=== PATIENT | female | born 1970 | race Caucasian/White ===

== ENCOUNTER 2019-04-15 08:52 | Observation (INO) | payer SELFPAY ==
[2019-04-15 08:53] VITALS: BP 122/37; PULSE 73; RESP 16; TEMP 36.6; O2SAT 97; BMI 44.4
--- NOTE | 2019-04-15 09:01 | ED.DCSUM_ITS ---
History of Present Illness Chief Complaint: Abd Pain Informant: Patient Onset: Today Context: Sudden Onset Timing: Continuous Quality: Pain Location: Right lower quadrant Current Severity: Moderate Maximum Severity: Severe Worsened by: Walking, supine position Relieved by: Nothing Associated Symptoms: Nausea Narrative: Patient is a 48-year-old woman status post hysterectomy with unilateral salpingo-oophorectomy as well as ovarian torsion. She is uncertain if the torsion occurred on the right side. She states her right ovary is still present. She is status post appendectomy. There is a history of ureterolithiasis x1. Patient presents with abrupt onset of right lower quadrant bowel pain. She states walking makes it worse as well as stretching her legs out. She denies dysuria, frequency, urgency or hematuria. She does report nausea without vomiting. She not eat breakfast. She states she does not always eat breakfast. She states she has no appetite. The pain does not radiate through to her back. She denies food intolerance. She denies history of cholelithiasis. He appears tanned. She states she does go to tanning bed. Prior similar symptoms: No Recent Illness/Hospitalization: No - Past Medical History (1) Ovarian torsion Status: Acute (2) Depression Status: Acute Past Medical History - Allergies and Home Meds Allergies/Adverse Reactions: Allergies doxycycline Adverse Reaction (Verified 04/15/19 08:54) Nausea ketorolac tromethamine [From Toradol] Adverse Reaction (Verified 04/15/19 08:54) Nausea Primary Care Physician: Leonardo Lopez MD [Primary Care Provider] - Prior records reviewed: Yes Surgical History: appendectomy, hysterectomy Lives: Spouse/ Significant Other Smoking Status: Never smoker Alcohol: Rare Drugs: None Review of Systems General: Denies: Chills, Fever, Malaise, Sweats, Weight loss Eyes: Denies: Visual changes - bilaterally, Blurred Vision - bilaterally ENT: Denies: Rhinorrhea, Sore throat Cardiovascular: Denies: Chest pain, Palpitations Respiratory: Denies: Dyspnea, Cough, Dyspnea on exertion Gastrointestinal: Reports: Abdominal pain, Nausea. Denies: Vomiting, Diarrhea, Constipation, Melena, Hematochezia, -, - Genitourinary: Denies: Dysuria, Hematuria, Frequency Musculoskeletal: Denies: Myalgias, Arthralgias, Neck pain, Back pain, Swelling, Extremity Pain, -, - Skin: Denies: Rash, Wounds Neurological: Denies: Headache, Weakness, Numbness Psych: Reports: Depression Hematologic: Denies: Easy bruising, Easy bleeding Physical Exam Vital Signs/Narrative: Vital Signs Temp Pulse Resp BP Pulse Ox 04/15/19 08:53 98 F 73 16 122/37 H 97 Inital Vital Signs reviewed: Yes General: Well nourished, Well developed, Obese, Acute Distress Head: Normocephalic, Atraumatic Eyes: Perrl, EOMI. Negative for: Pale conjunctiva, Scleral icterus ENT: Moist mucous membranes, No rhinorrhea, TM's clear Neck: Supple, Nontender, No lymphadenopathy, No JVD Cardiovascular: Regular rate, Regular rhythm, No murmurs, Normal S1, Normal S2 Respiratory: No distress, CTA bilaterally, Chest nontender Abdomen: Soft, Nondistended, Normal bowel sounds, Tender, Guarding, Hypoactive bowel sounds Back: Nontender, Normal Inspection. Negative for: CVA tenderness Extremities: Nontender, No edema. Negative for: Tenderness, Edema Skin: Normal color, No rash, No Trauma. Negative for: Cyanosis, Diaphoresis, Jaundice Neurological: Alert, Oriented x3, Cranial nerves II-XII grossly intact, Normal Strength, Normal Sensation Psychological: Normal affect, Normal Mood Diagnostic/Tx/Re-eval Impressions Abdomen/Pelvis CT 04/15/19 10:05 IMPRESSION: 3.3 mm calculus at the right ureterovesical junction causing right hydronephrosis and right hydroureter. Multiple gallstones. Electronically Signed: Addison Segundo, at 11:21 EST , Service support , 04/15/19 10:05 Abdomen/Pelvis without Cont [CT] Stat Laboratory Results 04/15/19 04/15/19 04/15/19 09:15 09:15 09:15 WBC 8.7 RBC 4.79 Hgb 14.0 Hct 43.1 MCV 90.0 MCH 29.2 MCHC 32.5 RDW Std Deviation 42.2 RDW Coeff of Wilber 12.8 Plt Count 240 MPV 10.3 Immature Gran % (Auto) 0.300 Neut % (Auto) 80.1 H Lymph % (Auto) 13.9 L [place] % (Auto) 3.7 Eos % (Auto) 1.5 Baso % (Auto) 0.5 Absolute Neuts (auto) 7.0 Absolute Lymphs (auto) 1.21 Nucleated RBC % 0 Sodium 142 Potassium 4.0 Chloride 111 H Carbon Dioxide 28.0 Anion Gap 3 L BUN 17 Creatinine 1.07 H Estim Creat Clear Calc 56.60 Est GFR (MDRD) Af Amer 70 Est GFR (MDRD) Non-Af 58 L BUN/Creatinine Ratio 15.9 Glucose 120 H Calcium 9.1 Total Bilirubin 0.30 AST 12 L ALT 27 Alkaline Phosphatase 89 Total Protein 7.5 Albumin 3.8 Globulin 3.7 Albumin/Globulin Ratio 1.0 Lipase 127 Urine Color Yellow Urine Clarity Sl. Cloudy Urine pH 5.0 Ur Specific [place] 1.020 Urine Protein 30 H Urine Glucose (UA) Normal Urine Ketones Negative Urine Occult Blood 250 H Urine Nitrite Negative Urine Bilirubin Negative Urine Urobilinogen Normal Ur Leukocyte Esterase 25 H Urine RBC 25-50 SEEN Urine WBC 0-5 SEEN Ur Squamous Epith Cells 0-5 SEEN Urine Bacteria 0 SEEN Urine Mucus 0 SEEN Urine Yeast 1+ AC is unremarkable. Renal functions unremarkable. Liver enzymes are normal. UA is remarkable for hematuria. There is no evidence infection. CT of the abdomen pelvis without contrast reveals obstructing 3.3 mm right UVJ stone with hydro-nephrosis and hydroureter. There is also evidence of cholelithiasis without evidence of cholecystitis. Patient's pain is not being managed. Urology was paged for admission. - Medical Decision Making Patient presents abrupt onset of right lower quadrant bowel pain. On exam she has diffuse tenderness in right upper quadrant with equivocal Sainz sign. This raises concern for cholelithiasis/cholecystitis. Patient believes her right ovary is still present. With prior history of torsion and a abrupt onset of pain with guarding need to evaluate for torsion if liver enzymes are normal. Chandra s no history of ureterolithiasis UA was obtained. Since patient reports allergy to Toradol she was treated with Zofran and morphine IV push. ED Disposition - Plan for ED Patient: Disposition: Acute Care Hospital [facility] Diagnosis: Hydronephrosis with urinary obstruction due to ureteral calculus Referrals: Leonardo Lopez MD [Primary Care Provider] -
[2019-04-15] MEDS: Ondansetron 4 MG/2 ML Vial IV (09:20)
[2019-04-15] MEDS: 0.9% Normal Saline 1,000 ML 1000 ML IV (09:20)
[2019-04-15] MEDS: Morphine 4 MG/ML Syringe IV ×2 (09:20→10:44)
[2019-04-15 09:26] LABS: Absolute Lymphocyte Count 1.21 X10^3/uL (0.83-4.51); Basophil# 0.04 X10^3/uL; Basophil% 0.5 % (0-1); Eosinophil# 0.13 X10^3/uL; Eosinophils% 1.5 % (0-5); Hematocrit 43.1 % (37-47); Lymphocyte # 1.21 X10^3/ul (4.0); Lymphocyte % 13.9 % (19-41); Mean Corp Hgb Conc 32.5 g/dL (32-36); Mean Corpuscular Hgb 29.2 pg (27.0-32.0); Mean Platelet Vol. 10.3 fl (6.2-12.0); Monocyte# 0.32 X10^3/uL; Monocyte% 3.7 % (0-10); NRBC Flagged by Analyzer 0 % (0-5); Neutrophil # 6.97 X10^3/uL (2.7-7.7); Neutrophil % 80.1 % (47-70); Platelet Count 240 K/mm3 (150-450); RBC Distribution Width CV 12.8 % (11.6-14.6); RBC Distribution Width SD 42.2 fl (35.1-43.9); Red Blood Count 4.79 M/mm3 (4.2-5.4); White Blood Count 8.7 K/mm3 (4.4-11.0)
[2019-04-15 09:28] LABS: Bacteria 0 SEEN /hpf (None Seen); Mucous, Urine 0 SEEN /hpf (<or=2+)
[2019-04-15 09:35] LABS: Color, Urine Yellow (Yellow); Glucose, Dipstick Normal (Normal); Ketone-Dipstick Negative (Negative); Leukocyte Esterase-Dipstick 25 /ul (Negative); Nitrite-Dipstick Negative (Negative); Occult Blood-Urine 250 /ul (Negative); Protein-Dipstick 30 mg/dl (Negative); Urine Bilirubin Dipstick Negative (Negative); Urine Clarity Sl. Cloudy (Clear); Urine Urobilinogen Normal (Normal)
[2019-04-15 09:41] LABS: AST(SGOT) 12 U/L (15-37); Alanine Aminotransfer ALT/SGPT 27 U/L (13-56); Albumin, Serum 3.8 g/dL (3.2-5.0); Alkaline Phosphatase 89 U/L (45-117); Anion Gap 3 (5-15); BUN 17 mg/dL (7-18); BUN/Creat Ratio 15.9 RATIO (10-20); Calcium,Total 9.1 mg/dL (8.5-10.1); Chloride 111 mmol/L (98-107); Creatinine, Serum 1.07 mg/dL (0.55-1.02); EST Glomerular Filtration Rate 58 mL/min (>60); Est Glom Filt Rate - Afr Amer 70 mL/min (>60); Globulin 3.7 g/dL (2.2-4.2); Glucose 120 mg/dL (74-106); Lipase 127 U/L (73-393); Protein, Total 7.5 g/dL (6.4-8.2); Sodium Level 142 mmol/L (136-145)
[2019-04-15 09:43] LABS: Red Blood Cells-Urine 25-50 SEEN /hpf (0-5); Squamous Epithelial Cells - UA 0-5 SEEN /hpf (5-10); White Blood Cells 0-5 SEEN /hpf (0-5); Yeast-Urine 1+ /hpf (None Seen)
--- NOTE | 2019-04-15 10:05 | CT_ITS ---
STUDY: CT ABDOMEN AND PELVIS WITHOUT CONTRAST REASON FOR EXAM: Female, 48 years old. ACUTE RIGHT SIDED PAIN WITH HEMATURIA, NAUSEA. RADIATION DOSAGE (If Supplied By Facility): CTDIvol = ( 23.20 ) mGy, DLP = ( 1333.14 ) mGycm TECHNIQUE: Transaxial images were obtained from the dome of the diaphragm to the symphysis pubis without oral contrast, and without intravenous contrast. Sagittal and coronal images were reconstructed. Individualized dose optimization techniques were used for this CT. COMPARISON: Comparison is made with prior study dated October 21, 2016. FINDINGS: Minimal degree of increased markings at the bases suggestive of atelectasis. The visualized portions of the heart are within normal limits. Normal liver. There are multiple gallstones. Normal spleen. Normal pancreas. Normal bilateral adrenal glands. Moderate degree right-sided hydronephrosis and hydroureter due to a 3.3 mm calculus at the right ureterovesical junction. Mild degree of right perinephric stranding. Normal left kidney. There is a small hiatal hernia. Normal small intestine. Normal colon. The appendix is visualized and appears normal. Normal abdominal aorta. Normal inferior vena cava. Normal retroperitoneum. Normal urinary bladder. There is absence of the uterus consistent with a prior hysterectomy. Normal abdominal wall. Normal osseous structures. CT/Abdomen/Pelvis without Cont IMPRESSION: 3.3 mm calculus at the right ureterovesical junction causing right hydronephrosis and right hydroureter. Multiple gallstones. Electronically Signed: Addison Segundo, at 11:21 EST , Service support ,
--- NOTE | 2019-04-15 10:40 | ED.RN ---
PT REQUESTING ADDITIONAL PAIN MEDICATION, DR. BARAJAS MADE AWARE, ADDITIONAL ORDERS OBTAINED.
[2019-04-15 11:20] VITALS: RESP 18
[2019-04-15] MEDS: morphine 8 MG/ML Syringe 6 MG IV (12:14)
[2019-04-15 13:19] VITALS: BMI 44.1
[2019-04-15 13:27] VITALS: BMI 44.2
[2019-04-15 13:46] VITALS: BP 129/70; PULSE 71; RESP 16; TEMP 36.7; O2SAT 94
[2019-04-15] MEDS: Dext 5%-0.45% NS 1,000 ML 125 ML IV (16:03)
[2019-04-15] MEDS: 0.9% Saline Lock 10 ML Syringe IV (16:10)
[2019-04-15] MEDS: Morphine 4 MG/ML Syringe 3 MG IV (16:10)
[2019-04-15] MEDS: Tamsulosin HCl 0.4 MG Capsule PO (16:43)
[2019-04-15 20:40] VITALS: BP 108/57; PULSE 81; RESP 18; TEMP 37.1; O2SAT 95
[2019-04-15] MEDS: oxyCODONE 5 MG Tablet 10 MG PO (20:49)
[2019-04-15] MEDS: Acetaminophen 325 MG Tablet 650 MG PO (20:50)
[2019-04-15] MEDS: Zolpidem Tartrate 5 MG Tablet PO (21:18)
[2019-04-15] MEDS: Citalopram 40 MG TABLET PO (21:18)
[2019-04-16] MEDS: Dext 5%-0.45% NS 1,000 ML 125 ML IV ×2 (00:10→08:18)
[2019-04-16] MEDS: Morphine 4 MG/ML Syringe 3 MG IV ×2 (00:12→06:52)
[2019-04-16 03:00] VITALS: BP 108/65; PULSE 69; RESP 18; TEMP 36.6; O2SAT 98
--- NOTE | 2019-04-16 08:17 | HP.PCM_ITS ---
Problem List (1) Hydronephrosis with urinary obstruction due to ureteral calculus Status: Acute History of Present Illness Date of Admission: 04/15/19 Chief Complaint: Right flank pain The patient is a 48 year old F who developed excruciating right-sided flank pain yesterday around 5:30 in the morning. It was associated with some nausea but no vomiting. She has had 1 stone in the past, did not need surgery for that stone. Her only other medical history is endometriosis. She has no other urological complaints. She presented to the emergency room secondary to the severity of her pain and was diagnosed with a right distal ureteral calculus with hydronephrosis.] Past Medical History Allergies doxycycline Adverse Reaction (Verified 04/15/19 08:54) Nausea ketorolac tromethamine [From Toradol] Adverse Reaction (Verified 04/15/19 08:54) Nausea Home Medications: Ambulatory Orders Medication Instructions Recorded Citalopram [Celexa] 40 mg PO DAILY 10/21/16 Zolpidem Tartrate [Ambien] 5 mg PO QHS 10/21/16 Surgical History: appendectomy, hysterectomy Lives: Spouse/ Significant Other Smoking Status: Never smoker Tobacco Use: Non-smoker Alcohol: Rare Drugs: None Review of Systems Constitutional: Denies: Chills, Fever, Weight Change Eyes: Denies: Vision Change HEENT: Denies: Difficulty Hearing, Difficulty Swallowing Cardiovascular: Denies: Chest Pain Respiratory: Denies: Shortness of Breath Gastrointestinal: Reports: Nausea, - - right flank pain. Denies: Vomiting Genitourinary: Denies: Dysuria, Incontinence, Urgency Gynecological: Denies: Vaginal discharge Musculoskeletal: Denies: Muscle pain Skin: Denies: Skin Changes, Wounds Neurological: Denies: Balance problems Endocrine: Denies: Change in Body Habitus VTE Information - Inpt Only VTE Present on Admission: Yes VTE Mechan Device Prophylaxis: SCD's VTE Pharm Prophylaxis ordered?: No Reason prophylaxis not ordered:: Treatment Not Indicated Patient Problems: Active and Suspected Problems Hydronephrosis with urinary obstruction due to ureteral calculus (Acute) - Physical Exam Vitals/I&O's: Vital Signs Temp Pulse Resp BP Pulse Ox 97.8 F 69 18 108/65 98 04/16/19 03:00 04/16/19 03:00 04/16/19 03:00 04/16/19 03:00 04/16/19 03:00 Oxygen Delivery Method Room Air Weight: 120.4 kg Body Mass Index (BMI) 44.1 Intake and Output for Last 24 Hours 04/14/19 04/15/19 04/16/19 23:59 23:59 23:59 Intake Total 1000 / 1000 1000 / 1000 Output Total 800 / 800 Balance 1000 / 1000 200 / 200 General: Alert, Oriented x3, Cooperative, No apparent distress HEENT: Atraumatic, Normocephalic Oral: Dry Mucosa Neck: Trachea Midline Lungs: Normal air movement Cardiovascular: Regular rate, Regular Rhythm Abdomen: Soft, Non Tender, Non-Distended Extremities: No Calf Tenderness Skin: No rashes Musculoskeletal: No Muscle Wasting Neurological: Cranial nerves II-XII grossly intact Psych/Mental Status: Normal Affect, Alert and oriented to time, place, person, mood and affect Laboratory Results 04/15/19 09:15: WBC 8.7, RBC 4.79, Hgb 14.0, Hct 43.1, MCV 90.0, MCH 29.2, MCHC 32.5, RDW Std Deviation 42.2, RDW Coeff of Wilber 12.8, Plt Count 240, MPV 10.3, Immature Gran % (Auto) 0.300, Neut % (Auto) 80.1 H, Lymph % (Auto) 13.9 L, [place] % (Auto) 3.7, Eos % (Auto) 1.5, Baso % (Auto) 0.5, Absolute Neuts (auto) 7.0, Absolute Lymphs (auto) 1.21, Nucleated RBC % 0 04/15/19 09:15: Sodium 142, Potassium 4.0, Chloride 111 H, Carbon Dioxide 28.0, Anion Gap 3 L, BUN 17, Creatinine 1.07 H, Estim Creat Clear Calc 56.60, Est GFR (MDRD) Af Amer 70, Est GFR (MDRD) Non-Af 58 L, BUN/Creatinine Ratio 15.9, Glucose 120 H, Calcium 9.1, Total Bilirubin 0.30, AST 12 L, ALT 27, Alkaline Phosphatase 89, Total Protein 7.5, Albumin 3.8, Globulin 3.7, Albumin/Globulin Ratio 1.0, Lipase 127 04/15/19 09:15: Urine Color Yellow, Urine Clarity Sl. Cloudy, Urine pH 5.0, Ur Specific [place] 1.020, Urine Protein 30 H, Urine Glucose (UA) Normal, Urine Ketones Negative, Urine Occult Blood 250 H, Urine Nitrite Negative, Urine Bilirubin Negative, Urine Urobilinogen Normal, Ur Leukocyte Esterase 25 H, Urine RBC 25-50 SEEN, Urine WBC 0-5 SEEN, Ur Squamous Epith Cells 0-5 SEEN, Urine Bacteria 0 SEEN, Urine Mucus 0 SEEN, Urine Yeast 1+ Current Medications Acetaminophen (Tylenol) 650 mg PO Q6H PRN PRN PRN Reason: Pain Score 1-10/10 Last Admin: 04/15/19 20:50 Dose: 650 mg Documented by: Citalopram Hydrobromide (Celexa) 40 mg PO QHS [facility] [place] Last Admin: 04/15/19 21:18 Dose: 40 mg Documented by: Dextrose/Sodium Chloride () 1,000 mls @ 125 mls/hr IV .Q8H [facility] [place] Last Admin: 04/16/19 00:10 Dose: 125 mls/hr Documented by: Morphine Sulfate () 3 mg IV Q3H PRN PRN PRN Reason: Pain Score 6-10/10 Last Admin: 04/16/19 06:52 Dose: 3 mg Documented by: Ondansetron HCl (Zofran) 4 mg IV Q8H PRN PRN PRN Reason: NAUSEA Oxycodone HCl (Oxyir) 10 mg PO Q6H PRN PRN PRN Reason: Pain Score 6-10/10 Last Admin: 04/15/19 20:49 Dose: 10 mg Documented by: Sodium Chloride () 10 - 40 ml IV UD PRN PRN Reason: SALINE FLUSH Last Admin: 04/15/19 16:10 Dose: 10 ml Documented by: Tamsulosin HCl (Flomax) 0.4 mg PO DAILY@1730 [facility] [place] Last Admin: 04/15/19 16:43 Dose: 0.4 mg Documented by: Zolpidem Tartrate (Ambien (Generic)) 5 mg PO QHS [facility] [place] Last Admin: 04/15/19 21:18 Dose: 5 mg Documented by: Assessment/Plan All Active Problems Ovarian torsion (Acute) Depression (Acute) Hydronephrosis with urinary obstruction due to ureteral calculus (Acute) options discussed including conservative management with trial of passage and surgical removal of the stone discharge home with pain medication and flomax follow up in the office in 1 week. if she has not passed the stone, will schedule for surgical intervention.
--- NOTE | 2019-04-16 08:26 | DCINST_ITS ---
Discharge Diet: No Restrictions Discharge Activity: May not drive while taking narcotic pain medications. May resume sexual activity in: No Restrictions Call your doctor if you observe: Fever of 101 or Higher, Inability to urinate, Inability to have a bowel movement, Uncontrolled pain Allergies/Adverse Reactions: Allergies doxycycline Adverse Reaction (Verified 04/15/19 08:54) Nausea ketorolac tromethamine [From Toradol] Adverse Reaction (Verified 04/15/19 08:54) Nausea Medications to take at Discharge Citalopram [Celexa] 40 mg PO DAILY 10/21/16 Zolpidem Tartrate [Ambien] 5 mg PO QHS 10/21/16 Ondansetron [Zofran] 8 mg PO Q8H PRN PRN 7 Days #20 tab 04/16/19 Oxycodone [Oxyir] 5 mg PO Q4H PRN PRN 7 Days #20 tab 04/16/19 Tamsulosin HCl [Flomax] 0.4 mg PO QHS #15 cap 04/16/19 The following prescriptions were given: Tamsulosin HCl [Flomax] 0.4 mg PO QHS #15 cap Prescription Printed Oxycodone [Oxyir] 5 mg PO Q4H PRN PRN 7 Days #20 tab PRN Reason: Pain Score 6-10/10 Prescription Printed Ondansetron [Zofran] 8 mg PO Q8H PRN PRN 7 Days #20 tab PRN Reason: Nausea Prescription Printed Primary Care Physician: Leonardo Lopez MD [Primary Care Provider] - Test Results: Test results from this visit will be discussed in further detail at your follow- up appointment, if applicable. Please Follow Up With: Vanessa Lizarraga MD When: call for appt to be seen at end of next week Proposed Discharge Date: 04/16/19
[2019-04-16 08:55] VITALS: BP 123/66; PULSE 74; RESP 16; TEMP 36.7; O2SAT 99
[2019-04-16] MEDS: oxyCODONE 5 MG Tablet 10 MG PO (08:55)
--- NOTE | 2019-04-16 09:48 | CASEMGMT ---
Social Work Note Pt is listed as self-pay. SW reviewed PFS notes. Pt completed [employer] application and was provided information on self-pay program. SW met with pt and introduced self and role at [facility]. Pt is alert and orientated x3. Pt confirms that she has no insurance. 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 Pt states she makes too much for medicaid. Pt states that PFS spoke with her regarding self-pay program and plans to enroll. SW provided pt with PFS number and encouraged pt to call. Pt denied any financial concerns. Agnes Shaw DIRECTOR EMERGENCY DEPARTMENT, [employer]IL CONSERVATION AIDE
[2019-04-16] MEDS: 0.9% Saline Lock 10 ML Syringe IV (11:51)
[2019-04-16 13:15] VITALS: BP 141/85; PULSE 69; RESP 16; TEMP 36.8; O2SAT 96
--- NOTE | 2019-04-16 13:16 | NURSING ---
This nurse strained all urine, still no stone seen.
== END 2019-04-16 14:00 | disposition home or self-care (01) ==
LOC: ED 12:27 → MS3 15:48
PROVIDERS: Admitting Provider Urology; Emergency Provider Emergency Medicine; PCP Family Medicine; Referring Provider Urology; Visit Provider Urology
DX: N13.2 Hydronephrosis with renal and ureteral calculous obstruction (principal); Z79.899 Other long term (current) drug therapy; F32.9 Major depressive disorder, single episode, unspecified
CPT/HCPCS: 74176; 80053; 81001; 83690; 85025; 87086; 96361; 96374; 96375; 96376; 99218; 99284; J7030; A4216; G0378; J2405; J7799

== ENCOUNTER → 2019-05-07 | Outpatient (CLI) | payer SELFPAY ==
[2019-04-15 13:19] VITALS: BMI 44.1
--- NOTE | 2019-05-07 16:19 | CT_ITS ---
STUDY: CT ABDOMEN AND PELVIS WITHOUT CONTRAST REASON FOR EXAM: Female, 48 years old. PT STATED SHE PASSED A STONE TODAY, CONTINUED PELVIC PAIN, HX OF STONES RADIATION DOSAGE (If Supplied By Facility): CTDIvol = ( 22.35 ) mGy, DLP = ( 1267.51 ) mGycm TECHNIQUE: Transaxial images were obtained from the dome of the diaphragm to the symphysis pubis without oral contrast, and without intravenous contrast. Sagittal and coronal images were reconstructed. Individualized dose optimization techniques were used for this CT. COMPARISON: October 21, 2016 CT abdomen and pelvis FINDINGS: The visualized lung bases are unremarkable. The ascending thoracic aorta measures 4 x 2.9 cm. This is slightly enlarged 1 mm since prior study. Normal liver. Again noted are 3 cholesterol laden stones within the gallbladder. Normal spleen. Normal pancreas. Normal bilateral adrenal glands. Normal right kidney. Normal left kidney. There is a small hiatal hernia. Normal small intestine. There is mild to moderate stool in the colon from the cecum to the rectum. There is a tortuous appearance of the bowel. The appendix is visualized and appears normal. Normal abdominal aorta. Normal inferior vena cava. Normal retroperitoneum. Normal urinary bladder. Normal visualized uterus. Normal abdominal wall. There is multilevel spondylosis especially at the thoracolumbar junction. CT/Abdomen/Pelvis without Cont IMPRESSION: No visualized renal ureteral or bladder calculi. No evidence of hydronephrosis. Partially visualized borderline aneurysmal dilatation of the ascending thoracic aorta. Cholelithiasis. Mild constipation. Status post hysterectomy. Electronically Signed: Karla Huang MD at 17:40 EST Tel , Service support ,
[2019-05-07 17:38] LABS: Absolute Lymphocyte Count 1.72 X10^3/uL (0.83-4.51); Absolute Neutrophil Count 5.9 X10^3/uL (2.0-7.7); Basophil# 0.05 X10^3/uL; Basophil% 0.6 % (0-1); Eosinophil# 0.03 X10^3/uL; Eosinophils% 0.4 % (0-5); Hemoglobin 13.9 g/dL (12.0-15.0); Lymphocyte # 1.72 X10^3/ul (4.0); Lymphocyte % 21.6 % (19-41); Mean Corp Hgb Conc 32.3 g/dL (32-36); Mean Corpuscular Hgb 28.7 pg (27.0-32.0); Mean Corpuscular Volume 88.7 fL (81-99); Monocyte# 0.24 X10^3/uL; NRBC Flagged by Analyzer 0 % (0-5); Neutrophil # 5.88 X10^3/uL (2.7-7.7); Platelet Count 262 K/mm3 (150-450); RBC Distribution Width CV 12.9 % (11.6-14.6); RBC Distribution Width SD 41.7 fl (35.1-43.9); Red Blood Count 4.85 M/mm3 (4.2-5.4)
[2019-05-07 17:44] LABS: AST(SGOT) 14 U/L (15-37); Alanine Aminotransfer ALT/SGPT 26 U/L (13-56); Albumin, Serum 4.2 g/dL (3.2-5.0); Alkaline Phosphatase 79 U/L (45-117); Anion Gap 5 (5-15); BUN 18 mg/dL (7-18); BUN/Creat Ratio 20.5 RATIO (10-20); Calcium,Total 9.1 mg/dL (8.5-10.1); Chloride 109 mmol/L (98-107); Creatinine, Serum 0.88 mg/dL (0.55-1.02); EST Glomerular Filtration Rate 72 mL/min (>60); Est Glom Filt Rate - Afr Amer 88 mL/min (>60); Globulin 3.7 g/dL (2.2-4.2); Glucose 93 mg/dL (74-106); Potassium 3.9 mmol/L (3.5-5.1); Protein, Total 7.9 g/dL (6.4-8.2); Sodium Level 139 mmol/L (136-145)
== END | disposition home or self-care (01) ==
PROVIDERS: PCP Family Medicine; Referring Provider Urology; Visit Provider Urology
DX: N20.1 Calculus of ureter (principal); R10.2 Pelvic and perineal pain
CPT/HCPCS: 36415; 74176; 80048; 80076; 85025

== ENCOUNTER → 2019-06-08 | Outpatient (CLI) | payer SELFPAY | END | disposition home or self-care (01) | LOC: SDC 11:56 | PROVIDERS: PCP Family Medicine; Referring Provider Urology; Visit Provider Urology | DX: R69 Illness, unspecified (principal) ==

== ENCOUNTER → 2019-12-17 | Outpatient (CLI) | payer SELFPAY ==
[2019-12-07 13:41] VITALS: BMI 44.1
--- NOTE | 2019-12-17 13:11 | MRI_ITS ---
STUDY: MRI LEFT SHOULDER REASON FOR EXAM: Left shoulder pain, decreased strength in left arm and decreased range of motion, possible injury in May. TECHNIQUE: Standardized fat and water weighted pulse sequences were obtained in all 3 orthogonal planes. COMPARISON: Radiographs 12/07/2019. FINDINGS: There is mild supraspinatus tendinosis and a small linear high grade partial-thickness tear of the bursal surface of the distal anterior supraspinatus tendon at the greater tuberosity insertion (T2 coronal image 15). Normal infraspinatus tendon. There is mild subscapularis tendinosis (proton-density axial image 10) without discrete tendon tear. Normal teres minor tendon. Normal supraspinatus muscle. Normal infraspinatus muscle. Normal subscapularis muscle. Normal teres minor muscle. Normal glenohumeral articulation. Normal humeral head and visualized proximal humerus. Normal biceps labral complex. Normal intracapsular long biceps tendon. Normal labrum. Normal capsulo- ligamentous complex. There is mild acromioclavicular arthrosis with mild hypertrophic changes effacing the subacromial fat (T2 sagittal images 11, 12). There is a Type II morphology (curved), with a neutral orientation. There is subacromial-subdeltoid bursal fluid. Normal visualized coracohumeral and coracoacromial ligaments. Normal deltoid muscle. Normal trapezius muscle. MRI/Upper Ext Joint Only(Routine) IMPRESSION: Small partial-thickness tear and mild tendinosis of the supraspinatus tendon. Mild subscapularis tendinosis. Mild acromioclavicular arthrosis. Subacromial-subdeltoid bursitis. Electronically Signed: Jamie Hanosn MD at 14:38 EDT Tel , Service support ,
== END | disposition home or self-care (01) ==
PROVIDERS: PCP Family Medicine; Referring Provider Orthopaedic Surgery; Visit Provider Orthopaedic Surgery
DX: M75.22 Bicipital tendinitis, left shoulder (principal); M75.82 Other shoulder lesions, left shoulder
CPT/HCPCS: 73221